=== PATIENT | female | born 1995 | race African-American/Black ===

== ENCOUNTER 2018-01-02 17:50 | Emergency (ER) | payer MEDICAID, OTHER ==
[~2018-01-02 17:50] MED LIST: ABIL5TAB6 PO
[2018-01-02 17:57] VITALS: BP 118/59; PULSE 86; RESP 14; TEMP 98.2; O2SAT 99
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
[2018-01-02] MEDS ORDERED: ROBA750T PO (18:38)
[2018-01-02] MEDS ORDERED: IBUP-232 PO (18:38)
[2018-01-02] MEDS ORDERED: CYCLOBENZAPRINE HCL 10 MG TAB PO ONE (18:45)
[2018-01-02] MEDS ORDERED: IBUPROFEN 600 MG TAB PO ONE (18:45)
== END 2018-01-02 18:55 | disposition home or self-care (01) ==
LOC: NEPK 17:50
DX: S39.012A Strain of muscle, fascia and tendon of lower back, initial encounter (principal); V43.62XA Car passenger injured in collision with other type car in traffic accident, initial encounter; Z79.899 Other long term (current) drug therapy
CPT/HCPCS: 99283

== ENCOUNTER 2018-02-18 00:14 | Emergency (ER) | payer SELFPAY ==
[~2018-02-18] VITALS: Ht 160 cm; Wt 60.0 kg
[~2018-02-18 00:14] MED LIST changes: +IBUP-232 PO; +ROBA750T PO
[2018-02-18 00:51] VITALS: BP 114/59; PULSE 74; RESP 18; TEMP 98.5; O2SAT 99
[2018-02-18 02:03] LABS: BILIRUBIN, URINE NEG (NEG); BLOOD, URINE MOD (NEG); GLUCOSE,URINE NEG (NEG); KETONE, URINE TRACE mg/dL (NEG); MUCUS URINE MOD /lpf (OCC); NITRITE,URINE NEG (NEG); SQUAMOUS EPITHELIAL CELL URINE 3 /hpf (0-5); URINE COLOR YELLOW (YELLW/STRAW); URINE LEUKOCYTE ESTERASE SMALL (NEG)
[2018-02-18] MEDS ORDERED: DOXY100C PO (02:10)
[2018-02-18] MEDS ORDERED: METR-1 PO (02:10)
--- NOTE | 2018-02-18 02:11 | PD ---
HPI . Pelvic pain Chief Complaint: Abdominal Pain Time Seen by Provider: 01:23 Travel History International Travel<30 days: No Contact w/Intl Traveler<30days: No Traveled to known affect area: No History of Present Illness HPI Patient presents with chief complaint of lower abdominal pain and a sore throat. Both started today. She is also complaining with abnormal vaginal bleeding, antecedent vaginal discharge and dyspareunia. She rates her pain 8/ 10 and states that it is exacerbated by sexual intercourse. PFSH Past Medical History Medical History: Denies Significant Hx ADHD: No Cancer: No Diabetes: No Diminished Hearing: No Headaches: No Psychiatric: Yes Immunizations Current: Yes Migraines: No Seizures: No Thyroid Disease: No Ulcer: No ?: Unknown LMP: 01/23/18 Menopausal: No : 1 Para: 0 Miscarriage: 0 : 1 Past Surgical History Surgical History: No Previous Surgery Appendectomy: No Section: No Cholecystectomy: No Social History Alcohol Use: No (denies) Tobacco Use: Yes (1/2 PPD) Substance Use: No Allergies-Medications (Allergen,Severity, Reaction): Coded Allergies: ibuprofen (Verified Allergy, Mild, Itching, 02/18/18) Reported Meds & Prescriptions Reported Meds & Active Scripts Active No Active Prescriptions or Reported Medications Review of Systems Except as stated in HPI: all other systems reviewed are Neg General / Constitutional: No: Fever, Chills Gastrointestinal: Positive: Abdominal Pain, No: Nausea, Vomiting, Diarrhea Genitourinary: Positive: Dyspareunia, Discharge, Vaginal Bleeding, No: Urgency , Frequency, Dysuria Physical Exam Narrative GENERAL: Awake and alert and in no acute distress. SKIN: Warm and dry. HEAD: Normocephalic/atraumatic. EYES: Pupils are equal. Extraocular movements are intact. ENT: Oropharynx has some streaky erythema compatible with postnasal drip. NECK: Normal range of motion. CARDIOVASCULAR: Regular rate and rhythm. RESPIRATORY: Nonlabored respirations. ABDOMEN: Soft and nontender. : Normal female. Scant blood in the vaginal vault. Positive cervical motion tenderness and bilateral adnexal tenderness. MUSCULOSKELETAL: Atraumatic. NEUROLOGICAL: Nonfocal. PSYCHIATRIC: Appropriate mood and affect. Data Data Last Documented VS Vital Signs Date Time Temp Pulse Resp B/P (MAP) Pulse Ox O2 Delivery O2 Flow Rate FiO2 02/18/18 00:51 98.5 74 18 114/59 (77) 99 Orders Orders Gc And Chlamydia Pcr (02/18/18 01:24) Wet Prep Profile (02/18/18 01:24) Urinalysis - C+S If Indicated (02/18/18 01:24) Ed Urine Pregnancytest Poc (02/18/18 01:24) Labs Laboratory Tests Test 02/18/18 01:20 Urine Color YELLOW Urine Turbidity CLEAR Urine pH 6.0 Urine Specific [place] 1.027 Urine Protein TRACE mg/dL Urine Glucose (UA) NEG mg/dL Urine Ketones TRACE mg/dL Urine Occult Blood MOD Urine Nitrite NEG Urine Bilirubin NEG Urine Urobilinogen 2.0 MG/DL Urine Leukocyte Esterase SMALL Urine RBC 40 /hpf Urine WBC 8 /hpf Urine Squamous Epithelial Cells 3 /hpf Urine Mucus MOD /lpf Microscopic Urinalysis Comment CULT NOT INDICATED MDM Medical Decision Making Medical Screen Exam Complete: Yes Emergency Medical Condition: Yes Differential Diagnosis Differential diagnosis of pelvic pain includes but is not limited to UTI, PID, ectopic , spontaneous AB, constipation, viral illness Narrative Course This patient presents with the chief complaint of pelvic pain and sore throat. She has associated abnormal vaginal bleeding, vaginal discharge or dyspareunia. Her exam is compatible with PID. She will be treated here with Rocephin and will be discharged on doxycycline and Flagyl. Her test here is negative. Diagnosis Primary Impression: PID (acute pelvic inflammatory disease) Patient Instructions: General Instructions, Pelvic Inflammatory Disease (DC) Med/Other Pt SpecificInfo: Prescription(s) given Scripts Metronidazole (Flagyl) 500 Mg Tab 500 MG PO BID for Infection for 7 Days, #14 TAB 0 Refills Prov: Pamela Britt MD 02/18/18 Doxycycline Hyclate (Doxycycline Hyclate) 100 Mg Cap 100 MG PO BID for Infection, #20 CAP 0 Refills Prov: Pamela Britt MD 02/18/18 Disposition: 01 DISCHARGE HOME Condition: Stable Pamela Britt MD Feb 18, 2018 02:11
[2018-02-18] MEDS ORDERED: LIDOCAINE HCL 1% 50 ML VIAL XX ONE (02:15)
[2018-02-18] MEDS ORDERED: cefTRIAXone 250 MG VIAL IM ONE (02:15)
[2018-02-18] MEDS ORDERED: LIDOCAINE HCL 1% 10 ML VIAL OTHER ONE (02:30)
== END 2018-02-18 03:32 | disposition home or self-care (01) ==
LOC: NEPE 00:14
DX: N73.9 Female pelvic inflammatory disease, unspecified (principal); J02.9 Acute pharyngitis, unspecified; F17.200 Nicotine dependence, unspecified, uncomplicated; Z88.6 Allergy status to analgesic agent
CPT/HCPCS: 81001; 84703; 87210; 87491; 87591; 96372; 99284; J0696

== ENCOUNTER 2018-02-27 00:35 | Emergency (ER) | payer OTHER ==
[~2018-02-27] VITALS: Ht 160 cm; Wt 57.3 kg
[~2018-02-27 00:35] MED LIST changes: -ABIL5TAB6 PO; +DOXY100C PO; -IBUP-232 PO; +METR-1 PO; -ROBA750T PO
[2018-02-27 00:40] VITALS: BP 125/70; PULSE 78; RESP 14; TEMP 98.5; O2SAT 100
--- NOTE | 2018-02-27 01:05 | PD ---
HPI Chief Complaint: Complaint Time Seen by Provider: 01:01 Travel History International Travel<30 days: No Contact w/Intl Traveler<30days: No Traveled to known affect area: No History of Present Illness HPI The patient is a 22 year old female who presents to the [facility] emergency department with a history of blisters that she reports began in her mouth yesterday. She reports that she thought it may be a reaction to antibiotic that she was on, therefore she discontinued it. She reports that she was on the last couple of days of the antibiotic regimen. She was diagnosed with PID on February 18 and was placed on Flagyl and doxycycline. The patient incidentally also reports having dysuria with urinary frequency and blood in her urine that began 3 days ago. She denies having any flank pain. She reports having lower abdominal cramping. She denies having any fevers or chills, nausea or vomiting. She reports having some diarrhea, with a loose stool every other day since being on the antibiotic. On review of systems otherwise, the patient denies having any recent cough or congestion, neck pain, chest pain, shortness of breath, or neurologic symptoms. LMP: February 18 - February 23. [facility] Past Medical History Narrative Medical The patient's past medical history is significant for none. ADHD: No Weight (Kg): 1 Cancer: No Diabetes: No Diminished Hearing: No Headaches: No Psychiatric: Yes Immunizations Current: Yes Migraines: No Seizures: No Thyroid Disease: No Ulcer: No Tetanus Vaccination: Never Vaccinated Influenza Vaccination: No ?: Unknown Menopausal: No : 1 Para: 0 Miscarriage: 0 : 1 Past Surgical History Narrative Surgical The patient's past surgical history is reportedly none. Appendectomy: No Section: No Cholecystectomy: No Social History Alcohol Use: Yes (occ) Tobacco Use: Yes (1/2 PPD) Substance Use: No Allergies-Medications (Allergen,Severity, Reaction): Coded Allergies: ibuprofen (Verified Allergy, Mild, Itching, 02/18/18) Reported Meds & Prescriptions Reported Meds & Active Scripts Active Flagyl (Metronidazole) 500 Mg Tab 500 Mg PO BID 7 Days Doxycycline Hyclate 100 Mg Cap 100 Mg PO BID Review of Systems Except as stated in HPI: all other systems reviewed are Neg General / Constitutional: No: Fever Eyes: No: Visual changes HENT: Positive: Gingival Bleeding, Other (Mouth pain ), No: Headaches Cardiovascular: No: Chest Pain or Discomfort Respiratory: No: Shortness of Breath Gastrointestinal: Positive: Diarrhea, Abdominal Pain, Changes in Bowel Habits, No: Nausea, Vomiting, Hematochezia, Loss of Appetite Genitourinary: Positive: Pelvic Pain, No: Dysuria Musculoskeletal: No: Pain Skin: No Rash Neurologic: No: Weakness, Focal Abnormalities, Change in Mentation, Slurred Speech, Sensory Disturbance Psychiatric: No: Depression Endocrine: No: Polydipsia Hematologic/Lymphatic: No: Easy Bruising Physical Exam Narrative General: The patient is a well-developed well-nourished female in no acute distress. Head and Neck exam: Head is normocephalic atraumatic. Eyes: EOMI, pupils are equal round and reactive to light. Nose: Midline septum with pink mucous membranes Mouth: Dentition unremarkable and without any michelle abscess formation. The patient does have some gingival erythema noted. The patient is noted to have ulcerations of her buccal mucosa as well as the dental mucosa near the gingiva. Moist mucus membranes. Posterior oropharynx is not erythematous. No tonsillar hypertrophy. Uvula midline. Airway patent. Neck: No palpable lymphadenopathy. No nuchal rigidity. No thyromegaly. Cardiovascular: Regular rate and rhythm without murmurs, gallops, or rubs. Lungs: Clear to auscultation bilaterally. No wheezes, rhonchi, or rales. Abdomen: Soft, with mild tenderness reported on palpation of the suprapubic area, no other tenderness on palpation of the other quadrants of the abdomen. No guarding , rebound, or rigidity. Normal bowel sounds are audible. No tenderness on palpation of McBurney's point. Negative Baumann sign. Extremities: No clubbing, cyanosis, or edema. No calf tenderness on palpation. Back: No spinous process tenderness to palpation. No costovertebral angle tenderness to palpation. Neurologic Exam: Grossly nonfocal. Skin Exam: No rash noted. Intact skin that is warm and dry. Data Data Last Documented VS Vital Signs Date Time Temp Pulse Resp B/P (MAP) Pulse Ox O2 Delivery O2 Flow Rate FiO2 02/27/18 00:40 98.5 78 14 125/70 (88) 100 Orders Orders Complete Blood Count With Diff (02/27/18 01:04) Comprehensive Metabolic Panel (02/27/18 01:04) Prothrombin Time / Inr (Pt) (02/27/18 01:04) Act Partial Throm Time (Ptt) (02/27/18 01:04) C-Reactive Protein (Crp) (02/27/18 01:04) Urinalysis - C+S If Indicated (02/27/18 01:04) Iv Access Insert/Monitor (02/27/18 01:04) Ecg Monitoring (02/27/18 01:04) Oximetry (02/27/18 01:04) Ed Urine Pregnancytest Poc (02/27/18 01:04) Sodium Chlor 0.9% 1000 Ml Inj (Ns 1000 M (02/27/18 01:30) Ct Abd/Pel W/O Iv Contrast (02/27/18 01:49) Labs Laboratory Tests Test 02/27/18 01:14 02/27/18 01:21 Urine Color YELLOW Urine Turbidity HAZY Urine pH 6.0 Urine Specific [place] 1.028 Urine Protein TRACE mg/dL Urine Glucose (UA) NEG mg/dL Urine Ketones TRACE mg/dL Urine Occult Blood NEG Urine Nitrite NEG Urine Bilirubin NEG Urine Urobilinogen 2.0 MG/DL Urine Leukocyte Esterase TRACE Urine RBC 2 /hpf Urine WBC 3 /hpf Urine Squamous Epithelial Cells 5 /hpf Urine Calcium Oxalate Crystals RARE /hpf Urine Amorphous Sediment RARE Urine Bacteria RARE /hpf Urine Hyaline Casts 2 /lpf Urine Mucus MANY /lpf Microscopic Urinalysis Comment CULT NOT INDICATED White Blood Count 7.4 TH/MM3 Red Blood Count 4.79 MIL/MM3 Hemoglobin 12.5 GM/DL Hematocrit 38.6 % Mean Corpuscular Volume 80.7 FL Mean Corpuscular Hemoglobin 26.2 PG Mean Corpuscular Hemoglobin Concent 32.5 % Red Cell Distribution Width 14.2 % Platelet Count 497 TH/MM3 Mean Platelet Volume 8.7 FL Neutrophils (%) (Auto) 52.4 % Lymphocytes (%) (Auto) 34.7 % Monocytes (%) (Auto) 7.8 % Eosinophils (%) (Auto) 4.0 % Basophils (%) (Auto) 1.1 % Neutrophils # (Auto) 3.9 TH/MM3 Lymphocytes # (Auto) 2.6 TH/MM3 Monocytes # (Auto) 0.6 TH/MM3 Eosinophils # (Auto) 0.3 TH/MM3 Basophils # (Auto) 0.1 TH/MM3 CBC Comment DIFF FINAL Differential Comment Prothrombin Time 13.1 SEC Prothromb Time International Ratio 1.3 RATIO Activated Partial Thromboplast Time 29.3 SEC Blood Urea Nitrogen 11 MG/DL Creatinine 0.84 MG/DL Random Glucose 86 MG/DL Total Protein 7.8 GM/DL Albumin 4.2 GM/DL Calcium Level 8.9 MG/DL Alkaline Phosphatase 61 U/L Aspartate Amino Transf (AST/SGOT) 16 U/L Alanine Aminotransferase (ALT/SGPT) 19 U/L Total Bilirubin 0.3 MG/DL Sodium Level 144 MEQ/L Potassium Level 3.9 MEQ/L Chloride Level 110 MEQ/L Carbon Dioxide Level 26.6 MEQ/L Anion Gap 7 MEQ/L Estimat Glomerular Filtration Rate 104 ML/MIN C-Reactive Protein LESS THAN 0.29 MG/DL MDM Medical Decision Making Medical Screen Exam Complete: Yes Emergency Medical Condition: Yes Medical Record Reviewed: Yes Interpretation(s) Last Impressions Abdomen/Pelvis CT 02/27/18 0149 Signed Impressions: Service Date/Time: Tuesday, February 27, 2018 01:58 - CONCLUSION: 1. No acute findings. Specifically no renal calculi or evidence for obstructive uropathy. Jem Shah MD Differential Diagnosis Kidney stone, versus hemorrhagic cystitis, versus dark colored urine from mild dehydration. Narrative Course During the course of the patient's emergency department visit, the patient's history, examination, and differential diagnosis were reviewed with the patient. The patient was placed on a conveyor monitor with oximetry and frequent blood pressure monitoring. The patient had IV access obtained and blood work sent for analysis. The patient was initially provided normal saline 1 L IV fluid bolus. The patient's laboratory studies were reviewed and remarkable for a white count of 7.4, hemoglobin 12.5, platelets 497 with a normal differential, CMP is remarkable for chloride of 110, C-reactive protein is less than 0.29, PT 13.1, PTT 29.3, urinalysis shows trace ketones trace leukocyte esterase rare calcium oxalate crystals rare bacteria many mucus. Radiology studies were reviewed and remarkable for a CT scan of the abdomen and pelvis that shows no acute findings. No renal calculi or evidence of obstructive uropathy. No free fluid. Patient's results were discussed with her, her questions were answered. The patient has mild dehydration noted with concentrated dark appearing urine. The patient was encouraged to push fluids and get plenty of rest. The patient appears to have an aphthous ulcer stomatitis with gingival inflammation. The patient was given a prescription for amoxicillin and Peridex mouthwash. The patient is resting comfortably and feels better, is alert and in no distress. The patient's results and examination findings were discussed with the patient. The repeat examination is unremarkable and benign. The history, exam, diagnostic testing, and current condition do not suggest any significant pathology to warrant further testing, continued ED treatment, admission, or surgical evaluation at this point. The vital signs have been stable. The patient does not have uncontrollable pain, intractable vomiting, or other significant symptoms. The patient's condition is stable and appropriate for discharge. The patient will pursue further outpatient evaluation with a primary care physician or other designated or consulting physician as indicated in the discharge instructions. The patient expressed understanding and was agreeable with this plan. Diagnosis Primary Impression: Aphthous stomatitis Additional Impression: Gingivitis Referrals: [facility] 3 days Patient Instructions: General Instructions, Gingivitis (ED) Med/Other Pt SpecificInfo: Prescription(s) given Scripts Uimppdrz-Xjpnauiconztyvr-Skzudeola Liq (Magic Mouthwash Adult Liq) 120 Ml Susp 5 ML SWISH-SWAL ACHS for Mouth sores, #120 ML 0 Refills Each 5mL contains: Nystatin 200,000units, Diphenhydramine 4.25mg, Viscous Lidocaine 10mg, Gonsalez syrup 0.8 mL Prov: Nataliia Wiley MD 02/27/18 Amoxicillin (Amoxicillin) 500 Mg Tab 500 MG PO TID for Infection for 7 Days, TAB 0 Refills Prov: Nataliia Wiley MD 02/27/18 Disposition: 01 DISCHARGE HOME Condition: Stable Nataliia Wiley MD Feb 27, 2018 01:05
[2018-02-27] MEDS ORDERED: SODIUM CHLOR 0.9% 1000 ML INJ 1,000 ML IV ONE (01:30)
[2018-02-27 01:38] LABS: AMORPHOUS SEDIMENT, URINE RARE; BACTERIA, URINE RARE /hpf; BILIRUBIN, URINE NEG (NEG); BLOOD, URINE NEG (NEG); CALCIUM OXALATE CRYSTALS,URINE RARE /hpf; GLUCOSE,URINE NEG (NEG); HYALINE CAST, URINE 2 /lpf (RARE); KETONE, URINE TRACE mg/dL (NEG); MUCUS URINE MANY /lpf (OCC); NITRITE,URINE NEG (NEG); SQUAMOUS EPITHELIAL CELL URINE 5 /hpf (0-5); URINE COLOR YELLOW (YELLW/STRAW); URINE LEUKOCYTE ESTERASE TRACE (NEG)
[2018-02-27 01:42] LABS: AUTOMATED NEUTROPHIL # 3.9 TH/MM3 (1.8-7.7); BASOPHIL # 0.1 TH/MM3 (0-0.2); BASOPHIL % 1.1 % (0.0-2.0); EOSINOPHIL # 0.3 TH/MM3 (0-0.4); HEMATOCRIT 38.6 % (35.0-46.0); HEMOGLOBIN 12.5 GM/DL (11.6-15.3); LYMPH % 34.7 % (9.0-44.0); LYMPHOCYTE # 2.6 TH/MM3 (1.0-4.8); MEAN CELL VOLUME 80.7 FL (80.0-100.0); MEAN CORPUSCULAR HEMOGLOBIN 26.2 PG (27.0-34.0); MEAN CORPUSCULAR HGB CONC 32.5 % (32.0-36.0); MEAN PLATELET VOLUME 8.7 FL (7.0-11.0); MONO % 7.8 % (0.0-8.0); MONOCYTE # 0.6 TH/MM3 (0-0.9); NEUT % 52.4 % (16.0-70.0); PLATELET COUNT 497 TH/MM3 (150-450); RED BLOOD COUNT 4.79 MIL/MM3 (4.00-5.30); RED CELL DISTRIBUTION WIDTH 14.2 % (11.6-17.2); WHITE BLOOD COUNT 7.4 TH/MM3 (4.0-11.0)
[2018-02-27 01:46] LABS: ALBUMIN 4.2 GM/DL (3.4-5.0); ALT (GPT) 19 U/L (10-53); AST (GOT) 16 U/L (15-37); BICARBONATE 26.6 MEQ/L (21.0-32.0); BLOOD UREA NITROGEN 11 MG/DL (7-18); C-REACTIVE PROTEIN LESS THAN 0.29 MG/DL (0.00-0.30); CALCIUM 8.9 MG/DL (8.5-10.1); CHLORIDE 110 MEQ/L (98-107); CREATININE 0.84 MG/DL (0.50-1.00); GLOMERULAR FILTRATION RATE 104 ML/MIN (>89); GLUCOSE,RANDOM 86 MG/DL (74-106); SODIUM (NA) 144 MEQ/L (136-145)
[2018-02-27 01:47] LABS: INTERNATIONAL NORMALIZED RATIO 1.3 RATIO; PROTHROMBIN TIME - PATIENT 13.1 SEC (9.8-11.6)
[2018-02-27 01:48] LABS: ALKALINE PHOSPHATASE 61 U/L (45-117); TOTAL BILIRUBIN ADULT 0.3 MG/DL (0.2-1.0); TOTAL PROTEIN 7.8 GM/DL (6.4-8.2)
--- NOTE | 2018-02-27 02:16 | RADRPT ---
EXAM DATE/TIME: 02/27/2018 01:58 [facility] COMPARISON: No previous studies available for comparison. INDICATIONS : Hematuria. ORAL CONTRAST: No oral contrast ingested. RADIATION DOSE: 7.11 CTDIvol (mGy) MEDICAL HISTORY : None SURGICAL HISTORY : None. ENCOUNTER: Initial ACUITY: 1 day PAIN SCALE: 5/10 LOCATION: Bilateral flank TECHNIQUE: Volumetric scanning of the abdomen and pelvis was performed. Using automated exposure control and ad justment of the mA and/or kV according to patient size, radiation dose was kept as low as reasonably achievable to obtain optimal diagnostic quality images. DICOM format image data is available electro nically for review and comparison. FINDINGS: Lung bases are clear. No acute findings in the liver, spleen, adrenals, kidneys or pancreas. Specific ally no renal or ureteral calculi or obstructive uropathy identified. No free fluid. No bowel obstruction. No adenopathy. No pelvic masses identified. Herman follicular cysts in the ovaries. CONCLUSION: 1. No acute findings. Specifically no renal calculi or evidence for obstructive uropathy. Jem Shah MD on February 27, 2018 at 2:13 Board Certified Radiologist. This report was verified electronically.
[2018-02-27] MEDS ORDERED: MAGICADU2 SWISH-SWAL (03:13)
[2018-02-27] MEDS ORDERED: AMOX500T PO (03:13)
== END 2018-02-27 03:24 | disposition home or self-care (01) ==
LOC: NEPE 00:35
DX: K12.0 Recurrent oral aphthae (principal); K05.10 Chronic gingivitis, plaque induced; R30.0 Dysuria; R31.9 Hematuria, unspecified; F17.200 Nicotine dependence, unspecified, uncomplicated
CPT/HCPCS: 74176; 80053; 81001; 84703; 85025; 85610; 85730; 86140; 96360; 99284; J7030